=== PATIENT | male | born 1970 | race Two or more races ===

== ENCOUNTER 2023-12-18 11:56 | Emergency (ER) | payer OTHER ==
[~2023-12-18] VITALS: Ht 167.6 cm; Wt 81.6 kg
[2023-12-18] MEDS ORDERED: KETOROLAC TROMETHAMINE 60 MG VIAL IM ONE (14:00)
[2023-12-18] MEDS ORDERED: ORPHENADRINE CITRATE 30 MG/ML AMPUL IM STA (17:28)
[2023-12-18] MEDS ORDERED: CEFTRIAXONE SODIUM 1,000 MG VIAL IM STA (19:04)
== END 2023-12-18 20:24 | disposition home or self-care (01) ==
LOC: ER 11:56
DX: M54.9 Dorsalgia, unspecified (principal)